=== PATIENT | male | born 1965 | race African-American/Black ===

== ENCOUNTER 2022-04-25 04:46 | Day surgery (SDC) | payer OTHER ==
[2022-04-20 11:34] VITALS: BMI 27.4
[2022-04-25 10:22] VITALS: TEMP 98.6
[2022-04-25 10:47] VITALS: RESP 15
[2022-04-25 16:07] VITALS: BP 111/74; PULSE 62
== END 2022-04-25 11:15 | disposition home or self-care (01) ==
LOC: JASU-ENDO 04:46
PROVIDERS: ATTEND Student in an Organized Health Care Education/Training Program
PROC: 0DBN8ZX Excision of Sigmoid Colon, Via Natural or Artificial Opening Endoscopic, Diagnostic (ICD-10-PCS; 2022-04-25)
PROC: 0DBN8ZX Excision of Sigmoid Colon, Via Natural or Artificial Opening Endoscopic, Diagnostic (ICD-10-PCS; 2022-04-25)
PROC: 0DBK8ZX Excision of Ascending Colon, Via Natural or Artificial Opening Endoscopic, Diagnostic (ICD-10-PCS; principal; 2022-04-25 09:30)
DX: D12.2 Benign neoplasm of ascending colon (principal); D12.3 Benign neoplasm of transverse colon; D12.5 Benign neoplasm of sigmoid colon; K57.30 Diverticulosis of large intestine without perforation or abscess without bleeding; I10 Essential (primary) hypertension
CPT/HCPCS: 88305-TC

== ENCOUNTER 2022-11-10 09:28 | Observation (INO) | payer OTHER ==
[2022-11-10 09:35] VITALS: BMI 28.0
[2022-11-10] MEDS ORDERED: PANTOPRAZOLE SODIUM 40 MG VIAL IVPUSH ONE (10:30)
[2022-11-10] MEDS ORDERED: PANTOPRAZOLE SODIUM 40 MG VIAL ONE (10:46)
[2022-11-10 11:00] LABS: HEMATOCRIT 22.2 % (35.4-49); MCHC 28.5 g/dl (32.0-35.9); MEAN CELL VOLUME 49.3 fl (80-96); MEAN PLT VOLUME 8.1 fl (7.5-11.1); PLATELET COUNT 217 10^3/uL (134-434); RDW 23.1 % (11.9-15.9); WHITE BLOOD COUNT 6.9 K/mm3 (4.0-10.0)
[2022-11-10 11:08] LABS: INR 1.11 (0.83-1.09); PROTHROMBIN TIME (PATIENT) 12.9 SEC (9.7-13.0)
[2022-11-10 11:11] LABS: ACTIVATED PTT 27.6 SECONDS (25.2-36.5)
[2022-11-10 11:12] LABS: HEMOGLOBIN 6.3 GM/dL (11.7-16.9)
[2022-11-10 11:23] LABS: POTASSIUM 3.3 mmol/L (3.5-5.1)
[2022-11-10 11:25] LABS: ALBUMIN 3.7 g/dl (3.4-5.0); BLOOD UREA NITROGEN 7.7 mg/dL (7-18); CALCIUM 9.1 mg/dL (8.5-10.1)
[2022-11-10 11:28] LABS: CREATININE 0.9 mg/dL (0.55-1.3)
[2022-11-10 11:30] LABS: BILIRUBIN,TOTAL 0.7 mg/dL (0.2-1); TOT PROT 8.1 g/dl (6.4-8.2)
[2022-11-10 12:43] LABS: ANISOCYTOSIS 2+; MACROCYTOSIS 0
[2022-11-10] MEDS ORDERED: EPINEPHrine 1:10,000 (P-F SYR) 1 MG/10 ML DISP.SYRIN ONE (12:48)
[2022-11-10] MEDS ORDERED: POTASSIUM CHLORIDE ORAL LIQUID 20 MEQ/15 ML PO ONE ×2 (15:32→15:45)
[2022-11-10] MEDS ORDERED: ROSUVASTATIN CA 20 MG TABLET PO SCH (22:00)
[2022-11-10] MEDS: HYDROCORTISONE 2.5% TOPICAL CREAM 30 GM TUBE RC SCH (22:28)
[2022-11-11 09:45] LABS: POTASSIUM 3.7 mmol/L (3.5-5.1)
[2022-11-11 09:46] LABS: BASO % 0.2 % (0-2.0); EOS % 0.9 % (0-4.5); HEMATOCRIT 25.8 % (35.4-49); HEMOGLOBIN 7.7 GM/dL (11.7-16.9); LYMPH % 31.4 % (8-40); MCHC 29.8 g/dl (32.0-35.9); MEAN CELL VOLUME 53.7 fl (80-96); MONO % 6.5 % (3.8-10.2); RBC 4.81 M/mm3 (4.00-5.60); RDW 26.8 % (11.9-15.9)
[2022-11-11 09:48] LABS: MEAN PLT VOLUME 8.3 fl (7.5-11.1); PLATELET COUNT 187 10^3/uL (134-434)
[2022-11-11 09:50] LABS: BLOOD UREA NITROGEN 7.9 mg/dL (7-18); CALCIUM 8.5 mg/dL (8.5-10.1)
[2022-11-11 09:53] LABS: CREATININE 0.8 mg/dL (0.55-1.3)
[2022-11-11] MEDS ORDERED: amLODIPine BESYLATE 10 MG TABLET (FP) PO SCH (10:00)
[2022-11-11] MEDS ORDERED: PANTOPRAZOLE 40 MG TABLET PO SCH (10:00)
[2022-11-11] MEDS ORDERED: LOSARTAN 50MG/HCTZ 12.5MG 1 TAB PO SCH (10:00)
[2022-11-11] MEDS: HYDROCORTISONE 2.5% TOPICAL CREAM 30 GM TUBE RC SCH (10:14)
[2022-11-11 10:25] VITALS: BP 137/88; PULSE 86; RESP 18; TEMP 98.6
== END 2022-11-11 10:51 | disposition home or self-care (01) ==
LOC: JER 09:28 → JERBED 10:04 → J8W 12:46 → OBSVTOIN 15:28 → INTOOBSV 15:28
PROVIDERS: ADMIT Family Medicine; ATTEND Family Medicine
PROC: 0DB98ZX Excision of Duodenum, Via Natural or Artificial Opening Endoscopic, Diagnostic (ICD-10-PCS; 2022-11-10)
PROC: 0DB78ZX Excision of Stomach, Pylorus, Via Natural or Artificial Opening Endoscopic, Diagnostic (ICD-10-PCS; 2022-11-10)
PROC: 30233N1 Transfusion of Nonautologous Red Blood Cells into Peripheral Vein, Percutaneous Approach (ICD-10-PCS; 2022-11-10)
PROC: 3E033GC Introduction of Other Therapeutic Substance into Peripheral Vein, Percutaneous Approach (ICD-10-PCS; principal; 2022-11-10 12:00)
DX: K57.90 Diverticulosis of intestine, part unspecified, without perforation or abscess without bleeding (principal); D64.9 Anemia, unspecified; I10 Essential (primary) hypertension; E78.5 Hyperlipidemia, unspecified; K64.4 Residual hemorrhoidal skin tags; F17.200 Nicotine dependence, unspecified, uncomplicated
CPT/HCPCS: 36415; 36430; 71045-TC-FY; 80048; 80053; 82272; 85025; 85610; 85730; 86900; 86922; 88305-TC; 88342-TC; 93005; 93010; 96374; 99285-25; G0378; P9038; P9058